=== PATIENT | male | born 1935 | race Native Hawaiian/Other Pacific Islander ===

== ENCOUNTER 2021-12-25 09:03 | Emergency (ER) | payer OTHER ==
[~2021-12-25] VITALS: Ht 188 cm; Wt 104.3 kg
[2021-12-25 09:06] VITALS: BP 165/87; TEMP 98.5
== END 2021-12-25 09:44 | disposition home or self-care (01) ==
LOC: ED 09:03
DX: H11.421 Conjunctival edema, right eye (principal); B30.3 Acute epidemic hemorrhagic conjunctivitis (enteroviral); H40.89 Other specified glaucoma
CPT/HCPCS: 99282